=== PATIENT | male | born 1950 | race Caucasian/White ===

== ENCOUNTER 2016-11-15 11:40 | Inpatient (IN) | payer OTHER ==
[~2016-11-15] VITALS: Ht 180.3 cm; Wt 113.8 kg
[~2016-11-15 11:40] MED LIST: DILT-CD240 MG PO; TEKTURNA150 MG PO
[2016-11-15 13:32] LABS: MCH 29.2 PG (29.0-34.0); MCHC 33.4 G/DL (30.0-36.0); MCV 87.5 FL (86-99); MEAN PLAT.VOLUME 9.7 uM^3 (9.0-12.4); PLATELET COUNT 209 K/uL (156-360); RBC DIS.WIDTH-CV 13.1 % (11.8-14.6); RBC DIS.WIDTH-SD 41.7 % (39-53); RED BLOOD COUNT 5.03 M/uL (4.00-5.50); WHITE BLOOD COUNT 12.7 K/uL (4.1-10.2)
[2016-11-15 13:40] LABS: CHLORIDE 108 mEq/L (99-109); POTASSIUM 3.6 mEq/L (3.7-5.4); SODIUM 139 mEq/L (136-147)
[2016-11-15 13:41] LABS: GLUCOSE 125 mg/dL (70-99)
[2016-11-15 13:43] LABS: ANION GAP 9 MEQ/L (2-14)
[2016-11-15 13:44] LABS: INTER. NORMALIZED RATIO 1.1; PROTHROMBIN TIME 11.5 (9.2-11.2); PTT 29.3 (25-32)
[2016-11-15 13:45] LABS: GFR ESTIMATE (CALCULATED) > 59 mL/min/
[2016-11-15 13:46] LABS: UREA NITROGEN (BUN) 11 mg/dL (9-23)
[2016-11-15] MEDS ORDERED: DILTIAZEM 24HR240 MG PO (15:33)
[2016-11-15] MEDS ORDERED: ELIQUIS5 MG PO (15:33)
[2016-11-15] MEDS ORDERED: PEN-VEE K,VEET500 MG PO (15:34)
[2016-11-15] MEDS ORDERED: GLUCOSAMINE-CH1 EA44 PO ×2 (15:35)
[2016-11-15] MEDS ORDERED: FLONASE SENSIM9.9 ML BOTH NARES (15:36)
[2016-11-15 18:00] VITALS: BP 131/71
[2016-11-15 19:00] VITALS: BP 135/72
[2016-11-15 19:30] LABS: METH RESISTANT S AUREUS PCR NEGATIVE (NEGATIVE)
[2016-11-15 19:43] LABS: PROBE CHECK PASS; SPECIMEN PROCESSING CONTROL PASS
[2016-11-15 20:00] VITALS: BP 129/75
[2016-11-15 21:00] VITALS: BP 132/68
[2016-11-15 22:00] VITALS: BP 125/75
[2016-11-15 23:00] VITALS: BP 101/62
[2016-11-16] VITALS (10 sets, daily range): BP systolic 106–136; BP diastolic 63–83
[2016-11-16 04:43] LABS: HEMATOCRIT 44.2 % (38.0-50.0); MCH 28.9 PG (29.0-34.0); MCHC 32.8 G/DL (30.0-36.0); MCV 88.2 FL (86-99); MEAN PLAT.VOLUME 9.4 uM^3 (9.0-12.4); PLATELET COUNT 219 K/uL (156-360); RBC DIS.WIDTH-CV 13.2 % (11.8-14.6); RBC DIS.WIDTH-SD 42.8 % (39-53); RED BLOOD COUNT 5.01 M/uL (4.00-5.50); WHITE BLOOD COUNT 13.5 K/uL (4.1-10.2)
[2016-11-16 04:57] LABS: CHLORIDE 108 mEq/L (99-109); SODIUM 137 mEq/L (136-147)
[2016-11-16 04:59] LABS: GLUCOSE 133 mg/dL (70-99)
[2016-11-16 05:00] LABS: ANION GAP 7 MEQ/L (2-14)
[2016-11-16 05:03] LABS: GFR ESTIMATE (CALCULATED) > 59 mL/min/
[2016-11-16 05:04] LABS: UREA NITROGEN (BUN) 9 mg/dL (9-23)
[2016-11-17 00:22] VITALS: BP 119/69
[2016-11-17 08:03] VITALS: BP 117/71
[2016-11-17] MEDS ORDERED: ANTIVERT25 MG PO (15:43)
[2016-11-17] MEDS ORDERED: PROMETHAZINE HC25 M1 PO (15:43)
[2016-11-17 15:55] VITALS: BP 117/68
== END 2016-11-17 18:45 | disposition home or self-care (01) | DRG 83 ==
LOC: EME → EDBD 11:40 → 3EAST 15:18 → 4WEST 15:18 → EDOF 15:18 → 4WEST 17:51 → 3EAST 11-16 11:47
PROVIDERS: Emergency Medicine; Internal Medicine Critical Care Medicine; Surgery
DX: S06.6X9A Traumatic subarachnoid hemorrhage with loss of consciousness of unspecified duration, initial encounter (principal); D68.9 Coagulation defect, unspecified; I48.91 Unspecified atrial fibrillation; E87.6 Hypokalemia; I10 Essential (primary) hypertension; W11.XXXA Fall on and from ladder, initial encounter; Y92.009 Unspecified place in unspecified non-institutional (private) residence as the place of occurrence of the external cause; D72.829 Elevated white blood cell count, unspecified; G47.30 Sleep apnea, unspecified; Z91.81 History of falling; Z90.49 Acquired absence of other specified parts of digestive tract; Z79.01 Long term (current) use of anticoagulants
CPT/HCPCS: 70450; 71260; 72125; 80048; 85027; 85610; 85730; 87641; 93005; 99281; 99285; J2270; J2405; J3480

== ENCOUNTER → 2016-12-11 | Outpatient (CLI) | payer OTHER ==
[~2016-12-11] MED LIST changes: +ANTIVERT25 MG PO; +DILTIAZEM 24HR240 MG PO; +ELIQUIS5 MG PO; +FLONASE SENSIM9.9 ML BOTH NARES; +GLUCOSAMINE-CH1 EA44 PO; +PEN-VEE K,VEET500 MG PO; +PROMETHAZINE HC25 M1 PO
== END | disposition home or self-care (01) ==
LOC: RAD 08:22
DX: S06.6X0D Traumatic subarachnoid hemorrhage without loss of consciousness, subsequent encounter (principal)
CPT/HCPCS: 70450

== ENCOUNTER → 2017-07-09 | Outpatient (CLI) | payer OTHER | END | disposition home or self-care (01) | LOC: CDC 12:02 | DX: Z01.810 Encounter for preprocedural cardiovascular examination (principal); D17.0 Benign lipomatous neoplasm of skin and subcutaneous tissue of head, face and neck; I48.91 Unspecified atrial fibrillation; R94.31 Abnormal electrocardiogram [ECG] [EKG] | CPT/HCPCS: 93000 ==

== ENCOUNTER 2017-07-27 09:07 | Day surgery (SDC) | payer OTHER ==
[~2017-07-27] VITALS: Ht 180.3 cm; Wt 120.7 kg
[~2017-07-27 09:07] MED LIST changes: +WELLBUTRIN XL150 MG PO
[2017-07-27 09:38] VITALS: BP 135/82
[2017-07-27] MEDS ORDERED: DILAUDID4 MG PO (13:20)
[2017-07-27] MEDS ORDERED: ONDANSETRON HCL8 MG PO (13:20)
[2017-07-27] MEDS ORDERED: ELIQUIS5 MG PO (13:20)
[2017-07-27] MEDS ORDERED: COLACE100 MG PO (13:20)
[2017-07-27 14:00] VITALS: BP 133/77
[2017-07-27 14:37] VITALS: BP 131/73
== END 2017-07-27 14:45 | disposition home or self-care (01) ==
LOC: SDC 09:07
PROC: 0JB50ZZ Excision of Left Neck Subcutaneous Tissue and Fascia, Open Approach (ICD-10-PCS; principal; 2017-07-27)
DX: D17.0 Benign lipomatous neoplasm of skin and subcutaneous tissue of head, face and neck (principal); I10 Essential (primary) hypertension; I48.91 Unspecified atrial fibrillation; E66.9 Obesity, unspecified; Z68.37 Body mass index [BMI] 37.0-37.9, adult; G47.33 Obstructive sleep apnea (adult) (pediatric); R73.03 Prediabetes; Z86.010 Personal history of colon polyps; Z79.01 Long term (current) use of anticoagulants; Z80.1 Family history of malignant neoplasm of trachea, bronchus and lung; Z82.49 Family history of ischemic heart disease and other diseases of the circulatory system; Z88.8 Allergy status to other drugs, medicaments and biological substances
CPT/HCPCS: 88304; J0690; J1100; J1170; J2405; J2710; S0020